=== PATIENT | female | born 1990 | race Caucasian/White ===

== ENCOUNTER 2020-12-03 16:47 | Outpatient (CLI) | payer MEDICAID, OTHER ==
[~2020-12-03] VITALS: Ht 165.1 cm; Wt 104.1 kg
[2020-12-03 16:55] VITALS: BP 145/82
[2020-12-03 18:06] LABS: BILIRUBIN,URINE NEGATIVE (NEGATIVE); CLARITY,URINE CLEAR; COLOR,URINE YELLOW; GLUCOSE, URINE (UA) NEGATIVE (NEGATIVE); KETONES,URINE NEGATIVE (NEGATIVE); LEUKOCYTE ESTERASE ,URINE NEGATIVE (NEGATIVE); NITRITE,URINE NEGATIVE (NEGATIVE); PROTEIN,URINE NEGATIVE (NEGATIVE)
[2020-12-03 18:06] LABS: BASOPHILS # (AUTO) 0.1 10^3/uL (0.0-0.1); BASOPHILS % (AUTO) 1 % (0-10); EOSINOPHILS # (AUTO) 0.1 10^3/uL (0.0-0.3); EOSINOPHILS % (AUTO) 2 % (0-10); HEMATOCRIT 37 % (35-52); HEMOGLOBIN 12.4 g/dL (11.5-16.0); LYMPHOCYTES # (AUTO) 1.9 10^3/uL (1.0-4.0); LYMPHOCYTES % (AUTO) 26 % (12-44); MEAN CORPUSCULAR HEMOGLOBIN 29 pg (25-34); MEAN CORPUSCULAR HGB CONC 33 g/dL (32-36); MEAN CORPUSCULAR VOLUME 86 fL (80-99); MEAN PLATELET VOLUME 11.5 fL (9.0-12.2); MONOCYTES # (AUTO) 0.6 10^3/uL (0.0-1.0); MONOCYTES % (AUTO) 9 % (0-12); NEUTROPHILS # (AUTO) 4.5 10^3/uL (1.8-7.8); NEUTROPHILS % (AUTO) 62 % (42-75); PLATELET COUNT 178 10^3/uL (130-400); WHITE BLOOD COUNT 7.2 10^3/uL (4.3-11.0)
[2020-12-03 18:10] LABS: ALBUMIN 2.8 GM/DL (3.2-4.5); CHLORIDE 109 MMOL/L (98-107); SODIUM 135 MMOL/L (135-145)
[2020-12-03 18:11] LABS: CALCIUM 8.7 MG/DL (8.5-10.1)
[2020-12-03 18:12] LABS: GLUCOSE 92 MG/DL (70-105)
[2020-12-03 18:13] LABS: TOTAL PROTEIN 6.3 GM/DL (6.4-8.2)
[2020-12-03 18:14] LABS: BILIRUBIN,TOTAL 0.4 MG/DL (0.1-1.0); CARBON DIOXIDE 19 MMOL/L (21-32)
[2020-12-03 18:15] LABS: BACTERIA,URINE LARGE /HPF
[2020-12-03 18:16] LABS: ALKALINE PHOSPHATASE 160 U/L (40-136); CREATININE SERUM 0.64 MG/DL (0.60-1.30); GFR ESTIMATED > 60
[2020-12-03 18:17] LABS: BENZODIAZEPINES SCREEN URINE NEGATIVE (NEGATIVE); COCAINE SCREEN URINE NEGATIVE (NEGATIVE)
[2020-12-03 18:17] LABS: BUN/CREATININE RATIO 9
[2020-12-03 18:18] LABS: AMPHETAMINE SCREEN, URINE POSITIVE (NEGATIVE); BARBITURATE SCREEN URINE NEGATIVE (NEGATIVE); CANNABINOID SCREEN, URINE NEGATIVE (NEGATIVE); METHADONE STAT NEGATIVE (NEGATIVE); METHAMPHETAMINE SCREEN URINE S POSITIVE (NEGATIVE); OPIATE SCREEN URINE NEGATIVE (NEGATIVE); OXYCODONE STAT NEGATIVE (NEGATIVE); PROPOXYPHENE STAT NEGATIVE (NEGATIVE); TRICYCLIC ANTIDEPRESSANTS SCRE NEGATIVE (NEGATIVE)
[2020-12-03 18:19] LABS: ALANINE AMINOTRANSFERASE 51 U/L (0-55); URIC ACID 4.8 MG/DL (2.6-7.2)
[2020-12-03 18:22] LABS: URINE CREATININE FOR RATIO 20 MG/DL (30-125)
[2020-12-03 18:23] LABS: URINE PROTEIN FOR RATIO ONLY < 6 MG/DL (6-12)
[2020-12-03] MEDS ORDERED: diphenhydrAMINE 25 MG TAB (BENADRYL) PO PRN (19:15)
[2020-12-03] MEDS: AMOXICILLIN 500 MG (POLYMOX) CAP PO SCH (20:50)
[2020-12-04 02:34] VITALS: BP 125/78
[2020-12-04 04:58] LABS: ALBUMIN 2.7 GM/DL (3.2-4.5); CHLORIDE 109 MMOL/L (98-107); POTASSIUM 3.8 MMOL/L (3.6-5.0); SODIUM 137 MMOL/L (135-145)
[2020-12-04 05:00] LABS: CALCIUM 8.5 MG/DL (8.5-10.1)
[2020-12-04 05:01] LABS: GLUCOSE 115 MG/DL (70-105); TOTAL PROTEIN 5.9 GM/DL (6.4-8.2)
[2020-12-04 05:02] LABS: CARBON DIOXIDE 18 MMOL/L (21-32)
[2020-12-04 05:03] LABS: BILIRUBIN,TOTAL 0.4 MG/DL (0.1-1.0)
[2020-12-04 05:04] LABS: ALKALINE PHOSPHATASE 154 U/L (40-136)
[2020-12-04 05:05] LABS: GFR ESTIMATED > 60
[2020-12-04 05:06] LABS: BUN/CREATININE RATIO 10
[2020-12-04 05:08] LABS: ALANINE AMINOTRANSFERASE 46 U/L (0-55)
[2020-12-04 06:03] VITALS: BP 117/69
[2020-12-04] MEDS ORDERED: PREN-142 PO (08:01)
[2020-12-04] MEDS ORDERED: AMOX500C2 PO (08:01)
[2020-12-04 09:10] VITALS: BP 124/65
[2020-12-04 10:19] VITALS: BP 124/65
[2020-12-04] MEDS: AMOXICILLIN 500 MG (POLYMOX) CAP PO SCH (10:29)
--- NOTE | 2020-12-04 12:10 | Short Stay Summary ---
HPI History of Present Illness: 30 yo female at 35 weeks gestation was seen at walk-in clinic for swelling and noted to have elevated blood pressure and suspicion of UTI. She was receiving care with Dr. Alston in [place], but states she was released at 33 weeks due to disagreements. Pt reports she has had opiate dependence since age 11 and she is on suboxone therapy through [facility]. She also has a history of methamphetamine use and is working on quitting and sees counseling through [facility]. She reports last methamphetamine use over a week ago. She also complains of swelling in her hands that comes and goes, along with pain in her MCP joints and redness. This has occurred to a milder degree for the last 3 ye ars, but has been worse in . She has had x-rays of her hands once through an ER but has not otherwise had a work-up. She also does note history of hepatitis C with chronic mild elevation in liver tests. She was going to have treatment at one point, but at that time her viral load was too low to get a genotype check and she has not had another viral load checked since then. 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 She was on abx for about 7 weeks, and states after hospital d/c, she did not have any other follow up. She is a with prior c- section about 10 years ago and states she was told she couldn't get and her partner was also reportedly told he could not have children, so she was not intending to get and is doing her best to quit methamphetamine use now that she has become . Source: patient Date seen by provider: Dec 04, 2020 Time Seen by Provider: 09:00 Attending Physician Heather Salas MD PCP No,Local Physician Consult Date of Admission Home Medications Home Medications Reviewed patient Home Medication Reconciliation performed by pharmacy medication reconciliations archives technician and/or nursing. Patients Allergies have been reviewed. Allergies Coded Allergies: gentamicin (Verified Allergy, Unknown, Hives, 12/03/20) TOL-Gpyxdl-Xxeqsh Hx Patient Social History Smoking Status: Current Everyday Smoker 2nd Hand Smoke Exposure: Yes Substance type: Methamphetamine Past Medical History PMHx: Hep C Methamphetamine use Opiate depence SurgHx: Review of Systems ([facility]) Constitutional: No fever EENTM: no symptoms reported Respiratory: no symptoms reported Cardiovascular: no symptoms reported Gastrointestinal: no symptoms reported Musculoskeletal: joint pain Skin: no symptoms reported Reviewed Test Results Reviewed Test Results Lab Laboratory Tests Test 12/03/20 17:00 12/03/20 17:45 12/04/20 04:30 Range/Units Urine Color YELLOW Urine Clarity CLEAR Urine pH 7.0 5-9 Urine Specific [place] 1.010 L 1.016-1.022 Urine Protein NEGATIVE NEGATIVE Urine Glucose (UA) NEGATIVE NEGATIVE Urine Ketones NEGATIVE NEGATIVE Urine Nitrite NEGATIVE NEGATIVE Urine Bilirubin NEGATIVE NEGATIVE Urine Urobilinogen 0.2 < = 1.0 MG/DL Urine Leukocyte Esterase NEGATIVE NEGATIVE Urine RBC (Auto) NEGATIVE NEGATIVE Urine RBC NONE /HPF Urine WBC 2-5 /HPF Urine Squamous Epithelial Cells 10-25 H /HPF Urine Crystals NONE /LPF Urine Bacteria LARGE H /HPF Urine Casts NONE /LPF Urine Mucus NEGATIVE /LPF Urine Culture Indicated YES Urine Creatinine 20 L 30-125 MG/DL Urine Protein/Creatinine Ratio Urine Opiates Screen NEGATIVE NEGATIVE Urine Oxycodone Screen NEGATIVE NEGATIVE Urine Methadone Screen NEGATIVE NEGATIVE Urine Propoxyphene Screen NEGATIVE NEGATIVE Urine Barbiturates Screen NEGATIVE NEGATIVE Ur Tricyclic Antidepressants Screen NEGATIVE NEGATIVE Urine Phencyclidine Screen NEGATIVE NEGATIVE Urine Amphetamines Screen POSITIVE H NEGATIVE Urine Methamphetamines Screen POSITIVE H NEGATIVE Urine Benzodiazepines Screen NEGATIVE NEGATIVE Urine Cocaine Screen NEGATIVE NEGATIVE Urine Cannabinoids Screen NEGATIVE NEGATIVE White Blood Count 7.2 4.3-11.0 10^3/uL Red Blood Count 4.34 3.80-5.11 10^6/uL Hemoglobin 12.4 11.5-16.0 g/dL Hematocrit 37 35-52 % Mean Corpuscular Volume 86 80-99 fL Mean Corpuscular Hemoglobin 29 25-34 pg Mean Corpuscular Hemoglobin Concent 33 32-36 g/dL Red Cell Distribution Width 14.1 10.0-14.5 % Platelet Count 178 130-400 10^3/uL Mean Platelet Volume 11.5 9.0-12.2 fL Immature Granulocyte % (Auto) 1 % Neutrophils (%) (Auto) 62 42-75 % Lymphocytes (%) (Auto) 26 12-44 % Monocytes (%) (Auto) 9 0-12 % Eosinophils (%) (Auto) 2 0-10 % Basophils (%) (Auto) 1 0-10 % Neutrophils # (Auto) 4.5 1.8-7.8 10^3/uL Lymphocytes # (Auto) 1.9 1.0-4.0 10^3/uL Monocytes # (Auto) 0.6 0.0-1.0 10^3/uL Eosinophils # (Auto) 0.1 0.0-0.3 10^3/uL Basophils # (Auto) 0.1 0.0-0.1 10^3/uL Immature Granulocyte # (Auto) 0.1 0.0-0.1 10^3/uL Sodium Level 135 137 135-145 MMOL/L Potassium Level 4.0 3.8 3.6-5.0 MMOL/L Chloride Level 109 H 109 H 98-107 MMOL/L Carbon Dioxide Level 19 L 18 L 21-32 MMOL/L Anion Gap 7 10 5-14 MMOL/L Blood Urea Nitrogen 6 L 7 7-18 MG/DL Creatinine 0.64 0.70 0.60-1.30 MG/DL Estimat Glomerular Filtration Rate > 60 > 60 BUN/Creatinine Ratio 9 10 Glucose Level 92 115 H 70-105 MG/DL Uric Acid 4.8 2.6-7.2 MG/DL Calcium Level 8.7 8.5 8.5-10.1 MG/DL Corrected Calcium 9.7 9.5 8.5-10.1 MG/DL Total Bilirubin 0.4 0.4 0.1-1.0 MG/DL Aspartate Amino Transf (AST/SGOT) 46 H 41 H 5-34 U/L Alanine Aminotransferase (ALT/SGPT) 51 46 0-55 U/L Alkaline Phosphatase 160 H 154 H 40-136 U/L Lactate Dehydrogenase 167 125-220 U/L Total Protein 6.3 L 5.9 L 6.4-8.2 GM/DL Albumin 2.8 L 2.7 L 3.2-4.5 GM/DL Physical Exam-([facility]) Physical Exam Vital Signs VS - Last 72 Hours, by Label 12/03/20 12/03/20 12/04/20 12/04/20 16:55 16:55 02:34 06:03 Temp 36.6 36.6 36.7 36.6 Pulse 67 67 74 75 Resp 18 18 18 18 B/P (MAP) 125/78 (94) 117/69 (85) Pulse Ox 99 99 O2 Delivery Room Air Room Air Room Air Room Air 12/04/20 12/04/20 09:10 10:19 Temp 36.4 Pulse 70 70 Resp 20 20 B/P (MAP) 124/65 (84) 124/65 O2 Delivery Room Air Capillary Refill : NONE General Appearance: WD/WN, no apparent distress Respiratory: lungs clear, normal breath sounds Cardiovascular: regular rate, rhythm, no murmur Gastrointestinal: non tender Extremities: other (non-pitting edema to calves, mild edema in both hands with faint erythema over all MCP joints) Neurologic/Psychiatric: alert, normal mood/affect Skin: warm/dry Short Stay Diagnosis Discharge Diagnosis-Short Stay Admission Diagnosis See problem list Final Discharge Diagnosis See problem list Conclusion Plan See problem list Was the Problem List Reviewed?: Yes Copy Copies To 1: COBY ERNST MD Assessment/Plan Assessment/Plan Admission Status: Observation (1) Elevated blood pressure complicating in third trimester, antepartum Status: Acute Assessment & Plan: Blood pressure has been okay at the hospital and she has no significant proteinuria. Preeclampsia labs unremarkable except minimal elevation in AST, due to this, she was kept overnight and repeat lab confirmed stable/decreased AST which is suspected to be due to Hep C. (2) Hepatitis C Status: Chronic Assessment & Plan: Discussed viral load testing outpatient with genotype testing if positive and referral to Dr. Bell through [facility] for treatment if positive after delivery. (3) Methamphetamine abuse Status: Chronic Assessment & Plan: Already has services, encouraged to continue, social work met with her while in the hospital. (4) Opiate dependence Status: Chronic Assessment & Plan: On therapy, no changes made. (5) 35 weeks gestation of Status: Acute Assessment & Plan: Has appt with Dr. Ernst today to transition care from Dr. Alston. (6) Urinary tract infection affecting care of mother in third trimester, antepartum Status: Acute Assessment & Plan: Amoxicillin, culture pending. (7) Bilateral hand swelling Status: Acute Assessment & Plan: Unclear if related versus possible inflammatory arthritis, discussed further work-up outpatient, needs to establish with a primary provider after delivery. HEATHER SALAS MD Dec 04, 2020 12:10
== END 2020-12-04 10:50 | disposition home or self-care (01) ==
LOC: LDRP 16:47 → WSo 16:47
PROVIDERS: ATTEND Family Medicine
DX: O13.3 Gestational [pregnancy-induced] hypertension without significant proteinuria, third trimester (principal); Z3A.35 35 weeks gestation of pregnancy
CPT/HCPCS: 36415; 80053; 80306; 81000; 82570; 83615; 84156; 84550; 85025; 87088

== ENCOUNTER 2020-12-25 18:48 | Inpatient (IN) | payer MEDICAID ==
[~2020-12-25] VITALS: Ht 165.1 cm; Wt 111.0 kg
[2020-12-25] VITALS (7 sets, daily range): BP systolic 141–173; BP diastolic 83–95
[~2020-12-25 18:48] MED LIST: AMOX500C2 PO; PREN-142 PO
[2020-12-25 19:20] LABS: BASOPHILS % (AUTO) 1 % (0-10); EOSINOPHILS # (AUTO) 0.1 10^3/uL (0.0-0.3); EOSINOPHILS % (AUTO) 1 % (0-10); HEMATOCRIT 37 % (35-52); HEMOGLOBIN 11.9 g/dL (11.5-16.0); LYMPHOCYTES # (AUTO) 1.6 10^3/uL (1.0-4.0); LYMPHOCYTES % (AUTO) 19 % (12-44); MEAN CORPUSCULAR HEMOGLOBIN 28 pg (25-34); MEAN CORPUSCULAR HGB CONC 32 g/dL (32-36); MEAN CORPUSCULAR VOLUME 86 fL (80-99); MONOCYTES # (AUTO) 0.6 10^3/uL (0.0-1.0); MONOCYTES % (AUTO) 7 % (0-12); NEUTROPHILS # (AUTO) 6.2 10^3/uL (1.8-7.8); NEUTROPHILS % (AUTO) 72 % (42-75); PLATELET COUNT 270 10^3/uL (130-400); WHITE BLOOD COUNT 8.6 10^3/uL (4.3-11.0)
[2020-12-25 19:45] LABS: ALBUMIN 2.9 GM/DL (3.2-4.5); CHLORIDE 106 MMOL/L (98-107); POTASSIUM 4.2 MMOL/L (3.6-5.0)
[2020-12-25 19:46] LABS: SODIUM 139 MMOL/L (135-145)
[2020-12-25 19:47] LABS: AMPHETAMINE SCREEN, URINE NEGATIVE (NEGATIVE); BARBITURATE SCREEN URINE NEGATIVE (NEGATIVE); BENZODIAZEPINES SCREEN URINE NEGATIVE (NEGATIVE); CANNABINOID SCREEN, URINE NEGATIVE (NEGATIVE); COCAINE SCREEN URINE NEGATIVE (NEGATIVE); METHADONE STAT NEGATIVE (NEGATIVE); METHAMPHETAMINE SCREEN URINE S NEGATIVE (NEGATIVE); OPIATE SCREEN URINE NEGATIVE (NEGATIVE); OXYCODONE STAT NEGATIVE (NEGATIVE); PROPOXYPHENE STAT NEGATIVE (NEGATIVE); TRICYCLIC ANTIDEPRESSANTS SCRE NEGATIVE (NEGATIVE)
[2020-12-25 19:48] LABS: GLUCOSE 125 MG/DL (70-105); TOTAL PROTEIN 6.8 GM/DL (6.4-8.2)
[2020-12-25 19:49] LABS: CARBON DIOXIDE 18 MMOL/L (21-32)
[2020-12-25 19:50] LABS: BILIRUBIN,TOTAL 0.4 MG/DL (0.1-1.0)
[2020-12-25 19:51] LABS: ALKALINE PHOSPHATASE 207 U/L (40-136); CREATININE SERUM 0.79 MG/DL (0.60-1.30); GFR ESTIMATED > 60
[2020-12-25 19:52] LABS: BUN/CREATININE RATIO 18
[2020-12-25 19:54] LABS: ALANINE AMINOTRANSFERASE 37 U/L (0-55)
[2020-12-25 20:35] LABS: URINE CREATININE FOR RATIO 88 MG/DL (30-125); URINE PROTEIN FOR RATIO ONLY 202 MG/DL (6-12)
[2020-12-26] VITALS (19 sets, daily range): BP systolic 128–175; BP diastolic 76–108
--- NOTE | 2020-12-26 07:06 | History & Physical-OB ---
OB - Chief Complaint & HPI Date/Time Date of Admission: Date of Admission: Date seen by a Provider: Dec 25, 2020 Time Seen by a Provider: 16:30 Chief Complaint/History OB-Reason for Admission/Chief: Obstetrical Complication (Preeclampsia) Hx : 2 Hx Para: 1 Expected Date of Delivery: January 07, 2021 Gestational Age in Weeks: 38 Gestational Age in Days: 1 Other 30-year-old two term one with previous section brought in as an outpatient December 25 for blood pressure monitoring. She is noted to have limited care. Her EDC based upon ultrasound performed through [facility] is noted to be January 07, 2021. She does have a history of opioid and methamphetamine use. She has been weaning herself off over Suboxone the past few weeks. Allergies and Home Medications Allergies Coded Allergies: gentamicin (Verified Allergy, Unknown, Hives, 12/03/20) Home Medications Amoxicillin 500 Mg Capsule, 500 MG PO BID Prescribed by: HEATHER SALAS on 12/04/20800 Vit No.124/Iron/FA 1 Each Tablet, 1 EACH PO DAILY Prescribed by: HEATHER SALAS on 12/04/20800 Patient Home Medication List Home Medication List Reviewed: Yes OB - History Hx of Present Care: Yes Ultrasounds: Other (normal us at 12 weeks.) Obstetrical Complications: Other (opioid and meth usage) Medical Complications: None Obstetrical History Hx : 2 Hx Para: 1 Patient Past Medical History PMHx: Hep C Methamphetamine use Opiate depence SurgHx: Social History/Family History Alcohol Use: Denies Use Recreational Drug Use: Yes 2nd Hand Smoke Exposure: Yes OB - Admission Exam Physical Exam Vitals: Vital Signs 12/25/20 12/26/20 12/26/20 21:23 05:51 06:14 Temp 36.4 Pulse 95 Resp 18 B/P (MAP) 146/76 Pulse Ox 99 O2 Delivery Room Air HEENT: Moist Membranes Heart: Rhythm Normal Lungs: Clear Abdomen: Gravid (38cm) Membranes: Intact Labs Laboratory Tests Test 12/25/20 19:00 12/25/20 19:12 Range/Units Urine Protein 202 H 6-12 MG/DL Urine Creatinine 88 30-125 MG/DL Urine Protein/Creatinine Ratio 2.30 Urine Opiates Screen NEGATIVE NEGATIVE Urine Oxycodone Screen NEGATIVE NEGATIVE Urine Methadone Screen NEGATIVE NEGATIVE Urine Propoxyphene Screen NEGATIVE NEGATIVE Urine Barbiturates Screen NEGATIVE NEGATIVE Ur Tricyclic Antidepressants Screen NEGATIVE NEGATIVE Urine Phencyclidine Screen NEGATIVE NEGATIVE Urine Amphetamines Screen NEGATIVE NEGATIVE Urine Methamphetamines Screen NEGATIVE NEGATIVE Urine Benzodiazepines Screen NEGATIVE NEGATIVE Urine Cocaine Screen NEGATIVE NEGATIVE Urine Cannabinoids Screen NEGATIVE NEGATIVE White Blood Count 8.6 4.3-11.0 10^3/uL Red Blood Count 4.26 3.80-5.11 10^6/uL Hemoglobin 11.9 11.5-16.0 g/dL Hematocrit 37 35-52 % Mean Corpuscular Volume 86 80-99 fL Mean Corpuscular Hemoglobin 28 25-34 pg Mean Corpuscular Hemoglobin Concent 32 32-36 g/dL Red Cell Distribution Width 15.0 H 10.0-14.5 % Platelet Count 270 130-400 10^3/uL Mean Platelet Volume 11.0 9.0-12.2 fL Immature Granulocyte % (Auto) 1 % Neutrophils (%) (Auto) 72 42-75 % Lymphocytes (%) (Auto) 19 12-44 % Monocytes (%) (Auto) 7 0-12 % Eosinophils (%) (Auto) 1 0-10 % Basophils (%) (Auto) 1 0-10 % Neutrophils # (Auto) 6.2 1.8-7.8 10^3/uL Lymphocytes # (Auto) 1.6 1.0-4.0 10^3/uL Monocytes # (Auto) 0.6 0.0-1.0 10^3/uL Eosinophils # (Auto) 0.1 0.0-0.3 10^3/uL Basophils # (Auto) 0.0 0.0-0.1 10^3/uL Immature Granulocyte # (Auto) 0.1 0.0-0.1 10^3/uL Sodium Level 139 135-145 MMOL/L Potassium Level 4.2 3.6-5.0 MMOL/L Chloride Level 106 98-107 MMOL/L Carbon Dioxide Level 18 L 21-32 MMOL/L Anion Gap 15 H 5-14 MMOL/L Blood Urea Nitrogen 14 7-18 MG/DL Creatinine 0.79 0.60-1.30 MG/DL Estimat Glomerular Filtration Rate > 60 BUN/Creatinine Ratio 18 Glucose Level 125 H 70-105 MG/DL Calcium Level 9.0 8.5-10.1 MG/DL Corrected Calcium 9.9 8.5-10.1 MG/DL Total Bilirubin 0.4 0.1-1.0 MG/DL Aspartate Amino Transf (AST/SGOT) 40 H 5-34 U/L Alanine Aminotransferase (ALT/SGPT) 37 0-55 U/L Alkaline Phosphatase 207 H 40-136 U/L Total Protein 6.8 6.4-8.2 GM/DL Albumin 2.9 L 3.2-4.5 GM/DL OB - Assessment/Plan/Diagnosis Assessment Assessment: other ( at term 38w2d gestation.) Admission Dx 1. IUP at term 38w2d 2. Preeclampsia 3. meth and opiod usage in . on suboxone therapy Admission Status: Observation Plan Plan: Other (awaiting BPP and us in am os 12/26) Other Plan -Dr Rdz notified in case RCS in order. COBY ERNST MD Dec 26, 2020 07:06
--- NOTE | 2020-12-26 10:12 | Diagnostic Imaging Report ---
INDICATION: Limited care. TECHNIQUE: Multiple real-time grayscale images were obtained over the gravid uterus. COMPARISON: None. FINDINGS: There is a single live fetus in a cephalic presentation. heart rate was recorded at 160 BPM. Placenta is anterior. Amniotic fluid index is 9.7 cm. kidneys, bladder, and stomach are unremarkable. There is a four-chamber heart. There is a three-vessel cord with normal insertion. brain and spine images are somewhat limited. Biophysical profile score is normal at 8/8. Biometrical measurements are as follows: Biparietal 9.51 cm, age 38 weeks 6 days. Head circumference 33.70 cm, age 38 weeks 5 days. Abdominal circumference 34.95 cm, age 38 weeks 6 days. Femur length 6.81 cm, age 35 weeks 0 days. Sonographic estimate age: 37 weeks 6 days. Sonographic estimated date of delivery: 01/10/2021. Estimated Weight: 3358 gm (+/- 490 gm). LMP percentile: 56%. heart rate: 160 beats per minute. number: 1 of 1. IMPRESSION: 1. Single live IUP at approximately 38 weeks gestational age with estimated date of confinement sonographically of 01/10/2021. 2. Biophysical profile score 8 out of 8. Dictated by: Dictated on workstation # [id number]
[2020-12-26] MEDS ORDERED: METOCLOPRAMIDE INJ 10 MG/2 ML (REGLAN) ONE (10:35)
[2020-12-26] MEDS ORDERED: CITRIC ACID/SOB CIT (BICITRA) 30 ML UDC ONE (10:35)
[2020-12-26] MEDS ORDERED: ceFAZolin 2 GM IV Premixed 50 ML ONE (10:35)
[2020-12-26] MEDS ORDERED: FAMOTIDINE 20MG/2ML IV (PEPCID) ONE (10:36)
[2020-12-26] MEDS ORDERED: FAMOTIDINE 20MG/2ML IV (PEPCID) IV ONE (10:45)
[2020-12-26] MEDS ORDERED: ceFAZolin 2 GM IV Premixed 50 ML IV ONE (10:45)
[2020-12-26] MEDS ORDERED: CATHETER FLUSH 10 ML SYR IV PRN (10:45)
[2020-12-26] MEDS ORDERED: METOCLOPRAMIDE INJ 10 MG/2 ML (REGLAN) IV ONE (10:45)
[2020-12-26] MEDS ORDERED: CITRIC ACID/SOB CIT (BICITRA) 30 ML UDC PO ONE (10:45)
[2020-12-26] MEDS ORDERED: fentaNYL INJ 100 MCG/2 ML AMP ONE (11:23)
[2020-12-26] MEDS ORDERED: OXYTOCIN PRE-MIX DRIP 1,000 ML IV ONE (11:23)
[2020-12-26] MEDS: LACTATED RINGERS 1,000 ML IV PRN ×2 (11:25→12:29)
[2020-12-26 11:26] LABS: BASOPHILS % (AUTO) 1 % (0-10); EOSINOPHILS # (AUTO) 0.1 10^3/uL (0.0-0.3); EOSINOPHILS % (AUTO) 1 % (0-10); HEMATOCRIT 36 % (35-52); HEMOGLOBIN 11.7 g/dL (11.5-16.0); LYMPHOCYTES % (AUTO) 27 % (12-44); MEAN CORPUSCULAR HEMOGLOBIN 28 pg (25-34); MEAN CORPUSCULAR HGB CONC 32 g/dL (32-36); MEAN CORPUSCULAR VOLUME 86 fL (80-99); MEAN PLATELET VOLUME 10.4 fL (9.0-12.2); MONOCYTES # (AUTO) 0.7 10^3/uL (0.0-1.0); MONOCYTES % (AUTO) 10 % (0-12); NEUTROPHILS # (AUTO) 4.4 10^3/uL (1.8-7.8); NEUTROPHILS % (AUTO) 60 % (42-75); PLATELET COUNT 242 10^3/uL (130-400); WHITE BLOOD COUNT 7.4 10^3/uL (4.3-11.0)
--- NOTE | 2020-12-26 12:08 | History & Physical-Surgical ---
HPO-Surgical History of Present Illness Chief Complaint: Previous 38 weeks Mild PreE Diagnosis/Surgical Indication: Previous Procedure: RLTCS Date of Surgery: Dec 26, 2020 Allergies and Home Medications Allergies Coded Allergies: gentamicin (Verified Allergy, Unknown, Hives, 12/03/20) Home Medications Amoxicillin 500 Mg Capsule, 500 MG PO BID Prescribed by: HEATHER SALAS on 12/04/20 08 Vit No.124/Iron/FA 1 Each Tablet, 1 EACH PO DAILY Prescribed by: HEATHER ASLAS on 12/04/20 08 Patient Home Medication List Home Medication List Reviewed: Yes Past Rktleis-Noeavh-Kowmdc Hx Patient Social History Drug of Choice: Meth over 1 month Opiates on subutex Smoking Status: Current Everyday Smoker 2nd Hand Smoke Exposure: Yes Reproductive System : Yes Expected Date of Delivery: January 07, 2021 Hx : 2 Hx Para: 1 Exam Vital Signs Vital Signs 12/26/20 08:49 Temp 37.3 Pulse 84 Resp 16 B/P (MAP) 157/82 (107) Pulse Ox 97 O2 Delivery Room Air Capillary Refill : Less Than 3 Seconds Labs Laboratory Tests Test 12/25/20 19:00 12/25/20 19:12 12/26/20 11:15 Range/Units Urine Protein 202 H 6-12 MG/DL Urine Creatinine 88 30-125 MG/DL Urine Protein/Creatinine Ratio 2.30 Urine Opiates Screen NEGATIVE NEGATIVE Urine Oxycodone Screen NEGATIVE NEGATIVE Urine Methadone Screen NEGATIVE NEGATIVE Urine Propoxyphene Screen NEGATIVE NEGATIVE Urine Barbiturates Screen NEGATIVE NEGATIVE Ur Tricyclic Antidepressants Screen NEGATIVE NEGATIVE Urine Phencyclidine Screen NEGATIVE NEGATIVE Urine Amphetamines Screen NEGATIVE NEGATIVE Urine Methamphetamines Screen NEGATIVE NEGATIVE Urine Benzodiazepines Screen NEGATIVE NEGATIVE Urine Cocaine Screen NEGATIVE NEGATIVE Urine Cannabinoids Screen NEGATIVE NEGATIVE White Blood Count 8.6 7.4 4.3-11.0 10^3/uL Red Blood Count 4.26 4.23 3.80-5.11 10^6/uL Hemoglobin 11.9 11.7 11.5-16.0 g/dL Hematocrit 37 36 35-52 % Mean Corpuscular Volume 86 86 80-99 fL Mean Corpuscular Hemoglobin 28 28 25-34 pg Mean Corpuscular Hemoglobin Concent 32 32 32-36 g/dL Red Cell Distribution Width 15.0 H 15.2 H 10.0-14.5 % Platelet Count 270 242 130-400 10^3/uL Mean Platelet Volume 11.0 10.4 9.0-12.2 fL Immature Granulocyte % (Auto) 1 2 % Neutrophils (%) (Auto) 72 60 42-75 % Lymphocytes (%) (Auto) 19 27 12-44 % Monocytes (%) (Auto) 7 10 0-12 % Eosinophils (%) (Auto) 1 1 0-10 % Basophils (%) (Auto) 1 1 0-10 % Neutrophils # (Auto) 6.2 4.4 1.8-7.8 10^3/uL Lymphocytes # (Auto) 1.6 2.0 1.0-4.0 10^3/uL Monocytes # (Auto) 0.6 0.7 0.0-1.0 10^3/uL Eosinophils # (Auto) 0.1 0.1 0.0-0.3 10^3/uL Basophils # (Auto) 0.0 0.0 0.0-0.1 10^3/uL Immature Granulocyte # (Auto) 0.1 0.1 0.0-0.1 10^3/uL Sodium Level 139 135-145 MMOL/L Potassium Level 4.2 3.6-5.0 MMOL/L Chloride Level 106 98-107 MMOL/L Carbon Dioxide Level 18 L 21-32 MMOL/L Anion Gap 15 H 5-14 MMOL/L Blood Urea Nitrogen 14 7-18 MG/DL Creatinine 0.79 0.60-1.30 MG/DL Estimat Glomerular Filtration Rate > 60 BUN/Creatinine Ratio 18 Glucose Level 125 H 70-105 MG/DL Calcium Level 9.0 8.5-10.1 MG/DL Corrected Calcium 9.9 8.5-10.1 MG/DL Total Bilirubin 0.4 0.1-1.0 MG/DL Aspartate Amino Transf (AST/SGOT) 40 H 5-34 U/L Alanine Aminotransferase (ALT/SGPT) 37 0-55 U/L Alkaline Phosphatase 207 H 40-136 U/L Total Protein 6.8 6.4-8.2 GM/DL Albumin 2.9 L 3.2-4.5 GM/DL General Appearance: Alert, Oriented X3 HEENT: Atraumatic Cardiovascular: Regular Rate Extremities: No Clubbing Skin: No Rashes Neuro: Normal Gait Psych/Mental Status: Mental Status NL Assessment/Plan Admission Diagnosis 30 yo @ 38 weeks Limited PNC Mild Preeclampsia Previous Hx of opiod use per patient, on subutex(suboxone) therapy GBS unknown Hx of Hepatitis C Admission Status: Inpatient Order (span 2 midnights) Reason for Inpatient Admission: Repeat KOFFI MARIE DO Dec 26, 2020 12:08
[2020-12-26] MEDS: KETOROLAC 30 MG/ML VIAL IV SCH ×2 (12:15→19:07)
[2020-12-26] MEDS ORDERED: ONDANSETRON 4 MG/2 ML (SDV) Z0FRAN IVP PRN ×2 (12:15→13:30)
[2020-12-26] MEDS ORDERED: TETANUS,DIPTH,PERTUSS P/F (BOOSTRIX) 0.5 ML VIAL IM SCH (12:15)
[2020-12-26] MEDS ORDERED: OXYTOCIN PRE-MIX DRIP 500 ML IV SCH (12:15)
[2020-12-26] MEDS ORDERED: MEASLES,MUMPS,RUBELLA 1 EA INJ SC SCH (12:15)
[2020-12-26] MEDS ORDERED: BUPIVACAINE 0.5% 30 ML (SENSORCAINE) VIAL ONE (12:29)
[2020-12-26] MEDS ORDERED: KETOROLAC 30 MG/ML VIAL ONE (12:29)
[2020-12-26] MEDS ORDERED: HYDROmorphone 2 MG/ML VIAL (DILAUDID) IV ONE (13:30)
[2020-12-26] MEDS: HYDROcodone/APAP 5 MG/325 MG (LORTAB) TAB PO PRN ×2 (15:23→20:42)
--- NOTE | 2020-12-26 16:38 | OPERATIVE REPORT ---
DATE OF SERVICE: PREOPERATIVE DIAGNOSES: 1. A 30-year-old G2, P1 at 38 weeks and 2 days gestation. 2. Previous section. 3. Mild preeclampsia. 4. History of opioid dependence, on Suboxone therapy. 5. Limited care. POSTOPERATIVE DIAGNOSES: 1. A 30-year-old G2, P1 at 38 weeks and 2 days gestation. 2. Previous section. 3. Mild preeclampsia. 4. History of opioid dependence, on Suboxone therapy. 5. Limited care. PROCEDURE PERFORMED: Repeat low transverse section. SURGEON: Lennox Marie DO PRESS TENDER SHORT GOODS: Dr. Jason Watson, who was necessary for manipulation and retraction throughout the procedure. ANESTHESIA: Spinal. ESTIMATED BLOOD LOSS: 750 mL. URINE OUTPUT: 30 mL clear at the end of the procedure. FLUIDS: 1600 mL of lactated Ringer's solution. FINDINGS: A live male weighing 7 pounds 4 ounces, Apgars of 8 and 8. Grossly normal appearing uterus, bilateral fallopian tubes and ovaries. SPECIMEN SENT: Placenta. INDICATIONS FOR PROCEDURE: This 30-year-old female was a patient, who came and was under the care of Dr. Watson, was identified as being preeclamptic having urine protein creatinine ratio, meeting criteria and blood pressures in the 150s to 160s over 100. Due to her preeclampsia and repeat and being over the gestational age of 37 weeks, he contacted myself to proceed with delivery. I presented to discuss the patient delivery. I discussed with the patient the risk of including, but not limited to the risk of bleeding, infection, damage to surrounding structures like the bowel, bladder, ureter, kidneys, possible need for operation, postoperative complications that may occur, hospital stay, risk from anesthesia, recovery timeframe and even . After everything was discussed with the patient in detail, consent was obtained in the preoperative area and the patient was taken to the operating room. OPERATIVE REPORT IN DETAIL: Once in the operating room, spinal analgesia was found to be adequate. She was placed in supine position with leftward tilt and prepped and draped in a normal sterile fashion. A timeout was performed. Anesthesia was tested. I then made a Pfannenstiel skin incision to the previously existing scar using knife and carried down to the underlying fascia using Bovie cautery. Fascial incision extended laterally using Bovie cautery. The superior aspect of the fascial incision was then grasped with Ella clamps, tented up and dissected off the underlying rectus muscles. The inferior aspect of fascial incision was then grasped with Ella clamps, tented up and dissected off the underlying rectus muscles. Rectus muscles were dissected down the midline using Maldonado scissors, which exposed the peritoneum, which I entered bluntly and extended using blunt traction. Mark ring retractor was placed in the peritoneal incision, which offers excellent lateral sidewall retraction. I identified the lower uterine segment, which was found to be thinned out. I made a low transverse incision to the vesicouterine peritoneum and bluntly dissected off the lower uterine segment, creating a bladder flap. I then proceeded with my myotomy until membranes were visualized, at which point I extended the uterine incision laterally and superiorly using bandage scissors. Amniotomy was performed, in the process of doing this, clear fluid was noted. Infant was found in vertex presentation. With gentle fundal pressure, the 's head was delivered through the incision, where the nares and oropharynx were bulb suctioned. Anterior and posterior shoulders were delivered. The was then brought to the operative field, where the cord was doubly clamped and cut. Infant was taken off the field by Dr. Watson for further attendance. Cord blood was collected, 3-vessel cord with intact placenta was delivered spontaneously thereafter. IV Pitocin was initiated to facilitate uterine contraction. Uterine fundus became firmer by manual massage. The uterus was then exteriorized and cleared of all endometrial clots and debris. I then proceeded with closing the uterine incision using 0 Vicryl suture in a running locked fashion. Second layer of imbricating 0 Monocryl was placed. Excellent hemostasis was noted after doing this. I then placed the uterus back in the pelvis and copiously irrigated the pelvis using normal saline. Once again, there was no active bleeding noted from any of my dissection planes. I placed Interceed antiadhesive over my low transverse incision. I then proceeded with closing the peritoneum using 3-0 Vicryl suture in a running fashion after I removed the Mark ring retractor. The rectus muscle was reapproximated using 3-0 Vicryl suture in an interrupted fashion. The fascia was reapproximated using 0 Vicryl suture in a running fashion. The skin was then reapproximated using 4-0 Monocryl running subcuticular. Dermabond was applied to the incision and sterile dressing with adhesive white tape. The patient tolerated the procedure well and was sent to the recovery area in a stable condition. Lap and sponge counts were correct at the end of the procedure. Instrument counts correct as well. Two grams of Ancef were given preoperatively for infection prophylaxis. Job ID: [id number] DocumentID: [id number] Dictated Date: 12/26/2020 13:56:39 Roofing Supervisor Date: 12/26/2020 16:36:55 Dictated By: LENNOX MARIE DO
[2020-12-26] MEDS ORDERED: amLODIPine 5 MG (NORVASC) TAB ONE (16:48)
[2020-12-26] MEDS ORDERED: amLODIPine 2.5MG (NORVASC) TAB PO NR (17:00)
[2020-12-26] MEDS ORDERED: amLODIPine 5 MG (NORVASC) TAB PO ONE (17:15)
[2020-12-26] MEDS ORDERED: hydrALAZINE (APESOLINE) 20 MG/ML VIAL IV STA (19:20)
[2020-12-26] MEDS ORDERED: hydrALAZINE (APESOLINE) 20 MG/ML VIAL IV NR (20:30)
[2020-12-26] MEDS: DOCUSATE SODIUM 100 MG (COLACE) CAP PO SCH (20:43)
[2020-12-26] MEDS ORDERED: hydrALAZINE (APESOLINE) 20 MG/ML VIAL IV PRN (22:45)
[2020-12-26] MEDS: CATHETER FLUSH 10 ML SYR IV SCH (22:45)
[2020-12-27] VITALS (7 sets, daily range): BP systolic 126–164; BP diastolic 68–105
[2020-12-27] MEDS: KETOROLAC 30 MG/ML VIAL IV SCH ×2 (00:48→06:09)
[2020-12-27] MEDS: HYDROcodone/APAP 5 MG/325 MG (LORTAB) TAB PO PRN ×4 (02:25→20:22)
[2020-12-27] MEDS: CATHETER FLUSH 10 ML SYR IV SCH (05:34)
[2020-12-27 05:51] LABS: BASOPHILS # (AUTO) 0.1 10^3/uL (0.0-0.1); BASOPHILS % (AUTO) 1 % (0-10); EOSINOPHILS # (AUTO) 0.1 10^3/uL (0.0-0.3); EOSINOPHILS % (AUTO) 1 % (0-10); HEMATOCRIT 32 % (35-52); HEMOGLOBIN 10.1 g/dL (11.5-16.0); LYMPHOCYTES % (AUTO) 23 % (12-44); MEAN CORPUSCULAR HEMOGLOBIN 27 pg (25-34); MEAN CORPUSCULAR HGB CONC 32 g/dL (32-36); MEAN CORPUSCULAR VOLUME 86 fL (80-99); MEAN PLATELET VOLUME 10.9 fL (9.0-12.2); MONOCYTES # (AUTO) 0.6 10^3/uL (0.0-1.0); MONOCYTES % (AUTO) 7 % (0-12); NEUTROPHILS # (AUTO) 5.7 10^3/uL (1.8-7.8); NEUTROPHILS % (AUTO) 67 % (42-75); PLATELET COUNT 227 10^3/uL (130-400); WHITE BLOOD COUNT 8.5 10^3/uL (4.3-11.0)
--- NOTE | 2020-12-27 07:19 | Anesthesia-Regional Post-Op ---
Regional Patient Condition Mental Status: Alert, Oriented x3 Circulation: Same as Pre-Op Headache: Absent Sensation: Full Recovery Motor Block: Absent Post Op Complications Complications None Follow Up Care/Instructions Patient Instructions None needed. Anesthesia/Patient Condition Patient is doing well, no complaints, stable vital signs, no apparent adverse anesthesia problems. No complications reported per nursing. MARIANNA WARD CRNA Dec 27, 2020 07:19
[2020-12-27] MEDS: amLODIPine 5 MG (NORVASC) TAB PO SCH (08:14)
[2020-12-27] MEDS: DOCUSATE SODIUM 100 MG (COLACE) CAP PO SCH ×2 (08:14→19:46)
--- NOTE | 2020-12-27 11:03 | Postpartum Progress Note ---
NED ROBERT MED STUDENT 12/27/20 1103: Note Note Day # 1 Subjective: Patient is without complaints. Ambulating, voiding. Tolerating a regular diet without nausea or vomiting. Normal lochia; passing some clots. Pain is controlled with oral pain medications but needed a dose of Toradol. Issue with hypertension post-op; started on Norvasc 5mg QD, received 15mg hydralazine. BP well controlled this AM. Had questions about hydrocodone use with . Objective: Physical Exam: General - Alert and oriented, no apparent distress Abdomen - Soft, appropriately tender to palpation, non-distended, fundus firm at umbilicus Extremities - moderate edema to bilateral feet, negative Sweta's bilaterally Incision - RLTCS cdi, no drainage Assessment: POD # 1, s/p RLTCS Recovering well, hemodynamically stable HTN Plan: Routine care. Encourage breast feeding. Encourage ambulation. Ferrous sulfate supplementation. Continue Norvasc until f/u appointment Plan for discharge tomorrow F/U in 2wks Vitals - Labs Vital Signs - I&O Vital Signs Date Time Temp Pulse Resp B/P (MAP) Pulse Ox O2 Delivery O2 Flow Rate FiO2 12/27/20 05:31 36.7 106 18 126/68 (87) 96 Room Air 12/27/20 02:30 36.2 109 16 131/76 (94) 96 Room Air 12/26/20 23:29 36.0 114 18 143/81 (101) 97 Room Air 12/26/20 21:55 36.3 111 18 150/88 (108) 97 Room Air 12/26/20 20:00 36.3 105 16 168/87 (114) 96 Room Air 12/26/20 19:10 102 18 175/108 (130) 96 Room Air 12/26/20 18:15 37.2 96 18 169/104 (125) 96 Room Air 12/26/20 16:00 36.9 88 18 164/100 (121) 100 Room Air 12/26/20 15:00 36.3 84 16 140/90 (107) 99 Room Air 12/26/20 14:15 36 15 135/95 (108) 98 Room Air 12/26/20 14:15 Room Air 12/26/20 13:59 36 15 151/97 (115) 98 Room Air 12/26/20 13:59 Room Air 12/26/20 13:45 Room Air 12/26/20 13:45 36 15 148/93 (111) 98 Room Air 12/26/20 13:30 Room Air 12/26/20 13:30 36.3 15 140/97 (111) 98 Room Air 12/26/20 13:30 Room Air 12/26/20 13:13 36.3 15 128/76 (93) 98 Room Air 12/26/20 13:13 Room Air 12/26/20 11:30 37.0 90 16 98 Room Air 12/26/20 11:29 37.0 90 16 132/79 (96) 98 Room Air I & O 12/27/20 07:00 Intake Total 3770 ml Output Total 1705 ml Balance 2065 ml Labs Laboratory Tests 12/26/20 11:15: White Blood Count 7.4, Red Blood Count 4.23, Hemoglobin 11.7, Hematocrit 36, Mean Corpuscular Volume 86, Mean Corpuscular Hemoglobin 28, Mean Corpuscular Hemoglobin Concent 32, Red Cell Distribution Width 15.2H, Platelet Count 242, Mean Platelet Volume 10.4, Immature Granulocyte % (Auto) 2, Neutrophils (%) (Auto) 60, Lymphocytes (%) (Auto) 27, Monocytes (%) (Auto) 10, Eosinophils (%) (Auto) 1, Basophils (%) (Auto) 1, Neutrophils # (Auto) 4.4, Lymphocytes # (Auto) 2.0, Monocytes # (Auto) 0.7, Eosinophils # (Auto) 0.1, Basophils # (Auto) 0.0, Immature Granulocyte # (Auto) 0.1 12/27/20 05:15: White Blood Count 8.5, Red Blood Count 3.70L, Hemoglobin 10.1L, Hematocrit 32L, Mean Corpuscular Volume 86, Mean Corpuscular Hemoglobin 27, Mean Corpuscular Hemoglobin Concent 32, Red Cell Distribution Width 15.1H, Platelet Count 227, Mean Platelet Volume 10.9, Immature Granulocyte % (Auto) 1, Neutrophils (%) (Auto) 67, Lymphocytes (%) (Auto) 23, Monocytes (%) (Auto) 7, Eosinophils (%) (Auto) 1, Basophils (%) (Auto) 1, Neutrophils # (Auto) 5.7, Lymphocytes # (Auto) 2.0, Monocytes # (Auto) 0.6, Eosinophils # (Auto) 0.1, Basophils # (Auto) 0.1, Immature Granulocyte # (Auto) 0.1 KOFFI MARIE DO 12/27/20 1104: Note Note Diagnosis: agree with Student with addition of Acute blood loss anemia Verification and Attestation of Medical Student E/M Service A medical student performed and documented this service in my presence. I reviewed and verified all information documented by the medical student and made modifications to such information, when appropriate. I personally performed the physical exam and medical decision making. Koffi Marie, Dec 27, 2020,11:03 NED ROBERT MED STUDENT Dec 27, 2020 11:03 KOFFI MARIE DO Dec 27, 2020 11:04
[2020-12-27] MEDS ORDERED: DCS100C PO (11:06)
[2020-12-27] MEDS ORDERED: AMLO-250 PO (11:06)
[2020-12-27] MEDS ORDERED: IBUP-844 PO (11:06)
[2020-12-27] MEDS ORDERED: ACHD5005 PO (11:06)
--- NOTE | 2020-12-27 11:08 | Discharge Inst-Women's Service ---
Discharge Inst-Women's Serv Depart Medication/Instructions New, Converted or Re-Newed RX: RX on Chart Final Diagnosis POD 2 RLTCS PreE Acute blood loss anemia Problems Reviewed?: Yes Consults/Follow Up Additional Follow Up: Yes Orders/Referrals Dr. Rdz in 7-[address] Watson/Lam/ KATARINA in 6 weeks Activity Activity: Activity as Tolerated Driving Instructions: No Driving for 1 Week NO SMOKING: NO SMOKING Nothing Inside Vagina: No Douching, No [place], No Tampons Diet Discharge Diet: No Restrictions Symptoms to Report to : Bleeding Excessive, Pain Increased, Fever Over 101 Degrees F, Vaginal Bleeding Increase, Questions/Concerns For Any Problems or Questions: Contact Your Physician Skin/Wound Care Infection Signs and Symptoms: Increased Redness, Foul Odor of Wound, Increased Drainage, Skin Itchy or Has a Rash, Increased Swelling, Temperature Above 101 F Operative Area Clean and Dry: Keep Incision Clean/Dry Stitches/Sheldon/Dermabond: Dermabond, Care of Stitches Bathing Instructions: KOFFI Monahan DO Dec 27, 2020 11:08
[2020-12-27] MEDS: IBUPROFEN 600 MG (MOTRIN) TAB PO SCH ×2 (12:15→18:14)
[2020-12-28] MEDS: HYDROcodone/APAP 5 MG/325 MG (LORTAB) TAB PO PRN ×4 (00:11→14:34)
[2020-12-28 00:45] VITALS: BP 142/88
[2020-12-28 02:55] VITALS: BP 151/81
[2020-12-28 06:10] VITALS: BP 142/84
[2020-12-28] MEDS: IBUPROFEN 600 MG (MOTRIN) TAB PO SCH ×3 (06:12→12:56)
[2020-12-28 08:00] VITALS: BP 143/82
[2020-12-28] MEDS: amLODIPine 5 MG (NORVASC) TAB PO SCH (08:30)
[2020-12-28] MEDS: DOCUSATE SODIUM 100 MG (COLACE) CAP PO SCH (08:30)
--- NOTE | 2020-12-28 09:39 | Postpartum Progress Note ---
Post Op Post-operative Day #2 s/p RLTCS on Norvasc for BP control Subjective: Patient is without complaints. Ambulating, voiding after branham removed. Tolerating a regular diet without nausea or vomiting. Normal lochia. Pain is well controlled with oral pain medications. Passing flatus. breast feeding. Objective: 12/27/20 12/28/20 12/28/20 12/28/20 23:58 00:45 02:55 06:10 Temp 36.2 36.5 Pulse 108 110 Resp 18 18 B/P (MAP) 164/105 (124) 142/88 (106) 151/81 (104) 142/84 (103) Pulse Ox 100 98 O2 Delivery Room Air Room Air 12/28/20 12/28/20 08:00 08:56 Temp 36.4 Pulse 84 Resp 18 B/P (MAP) 143/82 (102) Pulse Ox 98 97 O2 Delivery Room Air Room Air Physical Exam: General - Alert and oriented, no apparent distress Abdomen - Soft, appropriately tender to palpation, non-distended, fundus firm at umbilicus Incision - clean, dry and intact; no erythema or induration, no drainage Extremities - no edema, negative Sweta's bilaterally Assessment: 1. post-operative day # 2, status post RLTCS. Recovering well, hemodynamically stable Acute blood loss anemia 2. BP elevations, controlled with norvasc Plan: Routine post-operative care. Encourage breast feeding. Encourage ambulation. VTE prophylaxis: SCDs. Ferrous sulfate supplementation. Plan for discharge today Vitals - Labs Vital Signs - I&O Vital Signs Date Time Temp Pulse Resp B/P (MAP) Pulse Ox O2 Delivery O2 Flow Rate FiO2 12/28/20 08:56 97 Room Air 12/28/20 08:00 36.4 84 18 143/82 (102) 98 Room Air 12/28/20 06:10 36.5 110 18 142/84 (103) 98 Room Air 12/28/20 02:55 151/81 (104) 12/28/20 00:45 142/88 (106) 12/27/20 23:58 36.2 108 18 164/105 (124) 100 Room Air 12/27/20 19:45 36.8 108 18 142/72 (95) 98 Room Air 12/27/20 18:13 36.4 97 20 137/74 (95) 98 Room Air 12/27/20 12:15 36.9 110 18 131/73 (92) 95 Room Air I & O 12/28/20 06:59 Intake Total 1200 ml Output Total 3700 ml Balance -2500 ml CHIQUITA GOODWIN DO Dec 28, 2020 09:39
[2020-12-28 14:12] VITALS: BP 138/75
[2020-12-28] MEDS ORDERED: NICOTINE 21 MG (NICODERM) PATCH TD SCH (15:15)
[2020-12-29] MEDS ORDERED: PATCH REMOVAL TP SCH (09:00)
[2020-12-29] MEDS ORDERED: NICOTINE 21 MG (NICODERM) PATCH TD SCH (09:00)
[2020-12-30] MEDS ORDERED: PATCH REMOVAL TP SCH (09:00)
== END 2020-12-28 19:00 | disposition home or self-care (01) | DRG 787 ==
LOC: WSo 18:48 → LDRP 18:48 → WSo 12-26 10:39 → LDRP 12-26 10:39
PROVIDERS: ADMIT Obstetrics & Gynecology; ATTEND Obstetrics & Gynecology
PROC: 10D00Z1 Extraction of Products of Conception, Low, Open Approach (ICD-10-PCS; principal; 2020-12-26 12:05)
DX: O14.04 Mild to moderate pre-eclampsia, complicating childbirth (principal); F11.20 Opioid dependence, uncomplicated; O98.413 Viral hepatitis complicating pregnancy, third trimester; D62 Acute posthemorrhagic anemia; Z3A.38 38 weeks gestation of pregnancy; Z37.0 Single live birth; O99.323 Drug use complicating pregnancy, third trimester; F15.90 Other stimulant use, unspecified, uncomplicated; O34.211 Maternal care for low transverse scar from previous cesarean delivery; B19.20 Unspecified viral hepatitis C without hepatic coma; O99.334 Smoking (tobacco) complicating childbirth; F17.200 Nicotine dependence, unspecified, uncomplicated; O90.81 Anemia of the puerperium; Z23 Encounter for immunization; Z79.2 Long term (current) use of antibiotics
CPT/HCPCS: 36415; 76805; 76819; 80053; 80306; 82570; 84156; 85025; 86850; 86900; 86901; 90707; 90715; 94664; 99211; G0378